=== PATIENT | male | born 1970 | race Caucasian/White ===

== ENCOUNTER 2017-06-07 14:09 | Emergency (ER) | payer OTHER ==
[~2017-06-07] VITALS: Ht 188 cm; Wt 95.3 kg
[2017-06-07] MEDS ORDERED: ASPIR 8181 MG PO (14:28)
[2017-06-07] MEDS ORDERED: IBUPROFEN 800800 M1 PO (14:56)
[2017-06-07 15:16] VITALS: BP 140/104
== END 2017-06-07 15:18 | disposition home or self-care (01) ==
LOC: M.ERS 14:09
DX: Z00.00 Encounter for general adult medical examination without abnormal findings (principal)

== ENCOUNTER 2019-12-01 17:42 | Emergency (ER) | payer OTHER ==
[~2019-12-01] VITALS: Ht 185.4 cm; Wt 94.3 kg
[~2019-12-01 17:42] MED LIST: ASPIR 8181 MG PO; IBUPROFEN 800800 M1 PO
[2019-12-01 20:50] LABS: URINE BILIRUBIN NEGATIVE (Negative); URINE BLOOD 2+ (Negative); URINE CLARITY CLEAR; URINE COLOR YELLOW; URINE GLUCOSE-RANDOM NEGATIVE (Negative); URINE KETONES NEGATIVE (Negative); URINE LEUKOCYTES-REFLEX NEGATIVE (Negative); URINE NITRITE-REFLEX NEGATIVE (Negative); URINE PROTEIN NEGATIVE (Negative); URINE UROBILINOGEN 0.2 E.U./dl (0.2-1.0)
[2019-12-01 21:16] LABS: ABSOLUTE BASOPHILS 0.1 thou/uL (0.0-0.2); ABSOLUTE EOSINOPHILS 0.2 thou/uL (0.0-0.7); ABSOLUTE LYMPHOCYTES 2.8 thou/uL (0.8-5.3); ABSOLUTE MONOCYTES 0.9 thou/uL (0.0-1.2); ABSOLUTE NEUTROPHILS 4.8 thou/uL (1.6-8.1); BASOPHILS 0.9 %; EOSINOPHILS 1.9 %; HEMATOCRIT 42.6 % (42.0-52.0); HEMOGLOBIN 14.7 gm/dL (14.0-18.0); LYMPHOCYTES 32.2 %; MCH 30.4 pg (26.0-34.0); MCHC 34.5 g/dL (28.0-37.0); MCV 88.1 fL (80.0-100.0); MONOCYTES 10.3 %; MPV 9.1 fl. (7.2-11.1); NUCLEATED RBCS 0 /100WBC; PLATELET COUNT* 245 thou/uL (150-400); POLYS 54.7 %; RBC 4.84 mil/uL (4.50-6.00); RDW-CV 13.9 % (10.5-14.5); WBC 8.7 thou/uL (4.0-11.0)
[2019-12-01 21:16] LABS: SQUAMOUS 0-3 Few /LPF (0-3); URINE WBC-REFLEX 0-5 Rare /HPF (0-5)
[2019-12-01 21:17] LABS: BACTERIA-REFLEX 1-9 Few /HPF (None Seen); CASTS None Seen /LPF (None Seen); CRYSTALS None Seen /LPF (None Seen); MUCUS 0-3 Light strn/LPF (None Seen)
[2019-12-01 21:27] LABS: CALCIUM 8.6 mg/dL (8.5-10.1); CREATININE 1.3 mg/dL (0.6-1.3); POTASSIUM 3.9 mmol/L (3.5-5.1)
[2019-12-01 21:31] LABS: ALBUMIN 4.1 g/dL (3.4-5.0); TOTAL BILIRUBIN 0.4 mg/dL (<0.1-1.0); TOTAL PROTEIN 7.9 g/dL (6.4-8.2)
[2019-12-01] MEDS ORDERED: NORCO 5-325 TA1 EAC2 PO (22:51)
[2019-12-01] MEDS ORDERED: FLOMAX0.4 MG PO (22:51)
[2019-12-01] MEDS ORDERED: CIPROFLOXACIN500 M1 PO (22:51)
[2019-12-01 23:10] VITALS: BP 131/70
== END 2019-12-01 23:10 | disposition home or self-care (01) ==
LOC: M.ERS 17:42
PROVIDERS: Family Medicine
DX: N20.0 Calculus of kidney (principal); Z87.442 Personal history of urinary calculi

== ENCOUNTER 2020-04-07 06:45 | Emergency (ER) | payer OTHER ==
[~2020-04-07] VITALS: Ht 185.4 cm; Wt 95.3 kg
[~2020-04-07 06:45] MED LIST changes: +CIPROFLOXACIN500 M1 PO; +FLOMAX0.4 MG PO; +NORCO 5-325 TA1 EAC2 PO
[2020-04-07 06:52] VITALS: BP 184/115
[2020-04-07] MEDS ORDERED: VENTOLIN HFA 1818 GM INH (08:44)
[2020-04-07] MEDS ORDERED: ZPAK PO (08:44)
[2020-04-07] MEDS ORDERED: PREDNISONE 20 M20 M1 PO (08:44)
== END 2020-04-07 08:55 | disposition home or self-care (01) ==
LOC: M.ERS 06:45
DX: U07.1 COVID-19 (principal); I10 Essential (primary) hypertension; Z87.442 Personal history of urinary calculi; Z86.711 Personal history of pulmonary embolism

== ENCOUNTER 2020-07-08 18:48 | Observation (INO) | payer OTHER ==
[~2020-07-08] VITALS: Ht 185.4 cm; Wt 95.3 kg
[~2020-07-08 18:48] MED LIST changes: +PREDNISONE 20 M20 M1 PO; +VENTOLIN HFA 1818 GM INH; +ZPAK PO
[2020-07-08 19:05] VITALS: BP 154/96
[2020-07-08 19:22] LABS: ABSOLUTE BASOPHILS 0.1 thou/uL (0.0-0.2); ABSOLUTE LYMPHOCYTES 2.1 thou/uL (0.8-5.3); ABSOLUTE MONOCYTES 0.7 thou/uL (0.0-1.2); ABSOLUTE NEUTROPHILS 11.7 thou/uL (1.6-8.1); BASOPHILS 0.4 %; EOSINOPHILS 0.3 %; HEMATOCRIT 43.5 % (42.0-52.0); HEMOGLOBIN 14.4 gm/dL (14.0-18.0); LYMPHOCYTES 14.2 %; MCHC 33.2 g/dL (28.0-37.0); MCV 87.5 fL (80.0-100.0); MONOCYTES 4.5 %; MPV 8.7 fl. (7.2-11.1); NUCLEATED RBCS 0 /100WBC; PLATELET COUNT* 262 thou/uL (150-400); POLYS 80.6 %; RBC 4.98 mil/uL (4.50-6.00); RDW-CV 14.6 % (10.5-14.5); WBC 14.5 thou/uL (4.0-11.0)
[2020-07-08 19:31] LABS: CALCIUM 8.9 mg/dL (8.5-10.1); CREATININE 1.5 mg/dL (0.6-1.3); POTASSIUM 3.7 mmol/L (3.5-5.1)
[2020-07-08 19:35] LABS: ALBUMIN 4.1 g/dL (3.4-5.0); TOTAL BILIRUBIN 0.5 mg/dL (<0.1-1.0)
[2020-07-08 19:45] VITALS: BP 99/53
[2020-07-08 19:54] LABS: URINE BILIRUBIN NEGATIVE (Negative); URINE BLOOD TRACE (Negative); URINE CLARITY CLEAR; URINE COLOR YELLOW; URINE GLUCOSE-RANDOM NEGATIVE (Negative); URINE KETONES TRACE (Negative); URINE LEUKOCYTES-REFLEX NEGATIVE (Negative); URINE NITRITE-REFLEX NEGATIVE (Negative); URINE PROTEIN NEGATIVE (Negative); URINE SPECIFIC GRAVITY 1.025 (1.005-1.030); URINE UROBILINOGEN 0.2 E.U./dl (0.2-1.0)
[2020-07-08 21:45] VITALS: BP 161/95
--- NOTE | 2020-07-09 04:48 | NUR ---
PT ARRIVED TO THE UNIT AT 0. A&O X 4. ON RA. RT FLANK PAIN MANAGED WITH FENTANYL. IVF INFUISING ORDERED. NPO FOR UROLOGY CONSULT. WILL CONTINUE TO MONITOR.
[2020-07-09 07:50] VITALS: BP 161/98
--- NOTE | 2020-07-09 14:58 | NUR ---
CM COMPLETED THE INITIAL ASSESSMENT TO DISCUSS D/C PLANNING. PT IS AAOX4. PT LIVES HOME W/ AND CHILDREN. PT IS EMPLOYEED, ACTIVE AND INDEPENDENT W/CARES. PT HAS 0 DMES, NOR DOES PT HAVE HX W/ SNF OR HH. PT ROUNDS: PT HAS UROLOGY CONSULT
[2020-07-09 18:12] VITALS: BP 161/98
--- NOTE | 2020-07-09 18:40 | NUR ---
PATIENT IS A&OX4, PLEASANT AND COOPERATIVE WITH CARES. PATIENT LEFT UNIT AT APPROX. 1430 AND RETURNED TO UNIT APPROX. 1750 AFTER HAVING UROLOGY PROCEDURE AND RIGHT URETERAL STENT PLACED. PATIENT C/O NAUSEA WHEN RETURNING TO UNIT, ADMINISTERED PRN ZOFRAN AND OF NOW PATIENT APPEARS TO BE RESTING WITH EYES CLOSED, RESPIRATIONS EVEN AND UNLABORED. HOSPITALIST AND UROLOGY HAS CLEARED PATIENT TO DISCHARGE AND PRESCRIPTIONS FOR HOME ARE IN PATIENT'S CHART. PATIENT STATED HE WOULD LIKE TO SEE HOW HIS NAUSEA AND PAIN IS CONTROLLED BEFORE DISCHARGING. CALL LIGHT AND FREQUENTLY USED ITEMS WITHIN REACH.
[2020-07-09 20:50] VITALS: BP 129/71
[2020-07-10 04:00] VITALS: BP 104/64
[2020-07-10 04:29] LABS: ABSOLUTE LYMPHOCYTES 1.2 thou/uL (0.8-5.3); ABSOLUTE MONOCYTES 0.5 thou/uL (0.0-1.2); ABSOLUTE NEUTROPHILS 6.5 thou/uL (1.6-8.1); BASOPHILS 0.5 %; HEMATOCRIT 39.2 % (42.0-52.0); HEMOGLOBIN 13.1 gm/dL (14.0-18.0); LYMPHOCYTES 14.6 %; MCH 29.5 pg (26.0-34.0); MCHC 33.4 g/dL (28.0-37.0); MCV 88.4 fL (80.0-100.0); MONOCYTES 5.7 %; MPV 8.7 fl. (7.2-11.1); NUCLEATED RBCS 0 /100WBC; PLATELET COUNT* 217 thou/uL (150-400); POLYS 79.2 %; RBC 4.43 mil/uL (4.50-6.00); RDW-CV 14.8 % (10.5-14.5); WBC 8.2 thou/uL (4.0-11.0)
[2020-07-10 04:46] LABS: CALCIUM 8.1 mg/dL (8.5-10.1); CREATININE 1.3 mg/dL (0.6-1.3); POTASSIUM 4.3 mmol/L (3.5-5.1)
--- NOTE | 2020-07-10 06:00 | NUR ---
PATIENT HAS SLEPT WELL DURING THE NIGHT. VSS ON RA. NO C/O PAIN. PATIENT URINATING ADEQUATELY. MEDICATIONS GIVEN ORDERED AND CHARTED. ASSESSMENT CHARTED. IV IN LEFT AC-NS @ 100ML/HR. PATIENT INSTRUCTED TO USE CALL LIGHT WHEN NEEDING ASSISTANCE. HOURLY ROUNDS MADE. WILL CONTINUE WITH PLAN OF CARE AND NURSING TO MONITOR.
[2020-07-10 08:49] VITALS: BP 161/98
[2020-07-10 13:36] VITALS: BP 161/98
--- NOTE | 2020-07-10 13:37 | NUR ---
Pt remained A&O x4 for entire shift. Vital signs stable. Pt pleasant with staff. Pt escorted out of the building with nursing staff. Pt walked with steady gait to the exit.
--- NOTE | 2020-07-10 14:18 | OP ---
[address] [address] OPERATIVE REPORT Name: PENDLETONEMILIO Room: [address] Javier Vanegas#: [id number] Admission: 07/08/20 Attend Phys: Pito BijalRosemarie Sharonariel, Discharge: 07/10/20 Date of : 68 Report #: [id number] THIS REPORT FOR: cc: Servando Montoya Russell J. DO ~ Haggard, Kent L MD DATE OF SERVICE: 07/09/2020 PREOPERATIVE DIAGNOSES: A 7 mm proximal right ureteral stone, 2 mm distal right ureteral stone with hydronephrosis. POSTOPERATIVE DIAGNOSES: A 7 mm proximal right ureteral stone, 2 mm distal right ureteral stone with hydronephrosis. PROCEDURE: Cystoscopy, right retrograde pyelogram, right ureteroscopy with right ureteral stent placement. STAFF SURGEON: Caden Escalona MD FLOOR SANDER: None. ANESTHESIA: General. ESTIMATED BLOOD LOSS: Trace. COMPLICATIONS: None. SPECIMENS: None. DRAINS: A 26 x 6-Italian right ureteral stent. INDICATIONS: The patient is a pleasant 50-year-old white male with history of kidney stones, who began having rather significant flank pain yesterday around 3:00 p.m. He presented at [facility] where a CT scan confirmed a 7 mm proximal right ureteral stone and a 2 mm right ureterovesical junction stone. He was currently pain free, has not documented passing any stones. He denies any fevers. No nausea or vomiting. No gross hematuria. He was counseled regarding treatment options, elected for definitive cystoscopy, right retrograde pyelogram, right ureteroscopy, possible holmium laser lithotripsy, possible placement of right ureteral stent. After the risks and benefits of the procedure were explained and informed consent was obtained. OPERATIVE PROCEDURE: The patient was taken to the operating room comfortably placed in a dorsal lithotomy position under adequate general anesthesia. He was sterilely prepped and draped in a standard fashion exposing [place] [address] OPERATIVE REPORT Name: EMILIO PENDLETON Room: [address] Javier Vanegas#: [id number] Admission: 07/08/20 Attend Phys: Pito Irby, Discharge: 07/10/20 Date of : 68 Report #: [id number] He received his antibiotic therapy as prescribed. Appropriate timeout was carried out and all were in agreement. A 22-Italian cystoscope was placed into the urethra, anterior urethra normal sphincter intact. Prostate showed some prostatic hyperplasia, bladder was systematically viewed. Both ureteral orifices were identified. Right ureteral orifice was edematous consistent with either transmural ureteral stone or recently passed stone. No bladder calculi seen or foreign body there. Mucosa was smooth. An 8-Italian cone tipped catheter placed in the right ureteral orifice and a retrograde pyelogram performed showing kind of a narrow caliber ureter and by the time we got to the kidney, it was like filling defect in the renal pelvis consistent with possibly migrated stone that was in the distal ureter that was pushed up from the contrast. 0.035 Glidewire was gently placed up the right ureter and the cystoscope was removed. A 7-Italian semirigid scope was placed through the urethra up the right ureter and got below the iliac vessels, but could not get any higher, the stone was identified distally. I was able to get the stone and higher the flexible scope was removed and a cystoscope was backloaded over the guidewire and a 26 cm x 6-Italian ureteral stent was placed and positioned with a coil that went through the renal pelvis. Then, the tip was in the lower pole. Good coil in the bladder. I did not have very much of a renal pelvis to include whole entire loop of the stent. The bladder was drained. The cystoscope was then removed. He tolerated the procedure extremely well. He was extubated in the operating room, transferred to [facility] with assistance and went to recovery room in stable condition. If I can see the stone on a plain x-ray and tolerate the stent, he is a candidate for ESWL of a 7 mm right renal stone. If I cannot see the stone or not tolerating the stent, would present stage 2 for cystoscopy, right stent removal, right ureteroscopy, possible holmium laser lithotripsy as an outpatient next week. <ELECTRONICALLY SIGNED> By: Caden Escalona MD 07/10/20 1418 [id number] Escalona MD /nt
== END 2020-07-10 11:30 | disposition home or self-care (01) ==
LOC: M.ERS 18:48 → M.TBA-ER 20:22 → M.ORTHSURG 20:22
PROVIDERS: Emergency Medicine; Internal Medicine; ADMIT Family Medicine; ATTEND Family Medicine
DX: N13.2 Hydronephrosis with renal and ureteral calculous obstruction (principal); N17.9 Acute kidney failure, unspecified; R65.10 Systemic inflammatory response syndrome (SIRS) of non-infectious origin without acute organ dysfunction; I10 Essential (primary) hypertension; Z79.899 Other long term (current) drug therapy; Z86.19 Personal history of other infectious and parasitic diseases; Z86.711 Personal history of pulmonary embolism; Z87.442 Personal history of urinary calculi; Z20.822 Contact with and (suspected) exposure to COVID-19

== ENCOUNTER → 2020-08-26 | Outpatient (CLI) | payer OTHER | LOC: M.RAD 09:06 | PROVIDERS: ATTEND Urology | DX: N20.0 Calculus of kidney (principal) ==

== ENCOUNTER → 2020-11-12 | Outpatient (CLI) | payer OTHER | LOC: M.RAD 09:38 | PROVIDERS: ATTEND Urology | DX: N20.0 Calculus of kidney (principal) ==

== ENCOUNTER → 2020-12-27 | Outpatient (CLI) | payer OTHER | LOC: M.ULTRA 11:14 | PROVIDERS: ATTEND Family Medicine | DX: M79.671 Pain in right foot (principal); M79.89 Other specified soft tissue disorders; Z86.711 Personal history of pulmonary embolism ==